=== PATIENT | male | born 1990 | race American Indian/Alaskan Native ===

== ENCOUNTER 2017-03-03 23:55 | Emergency (ER) | payer SELFPAY ==
[2017-03-04 00:31] VITALS: BP 145/94
== END 2017-03-04 03:29 | disposition left against medical advice (07) ==
LOC: ED 23:55
DX: S01.111A Laceration without foreign body of right eyelid and periocular area, initial encounter (principal); Z53.21 Procedure and treatment not carried out due to patient leaving prior to being seen by health care provider; X58.XXXA Exposure to other specified factors, initial encounter; Y93.89 Activity, other specified; Y99.8 Other external cause status; Y92.89 Other specified places as the place of occurrence of the external cause

== ENCOUNTER 2017-07-11 15:20 | Emergency (ER) | payer SELFPAY ==
[2017-07-11] MEDS ORDERED: NACL ONE (17:20)
== END 2017-07-11 16:49 | disposition left against medical advice (07) ==
LOC: ED 15:20
DX: R56.9 Unspecified convulsions (principal); Z53.21 Procedure and treatment not carried out due to patient leaving prior to being seen by health care provider